=== PATIENT | female | born 1995 | race Asian ===

== ENCOUNTER 2017-08-10 10:49 | Emergency (ER) | payer MEDICAID ==
[~2017-08-10] VITALS: Ht 170.2 cm; Wt 59.0 kg
[~2017-08-10 10:49] MED LIST: BENADRYL ALLERG25 M1 PO; NKM; PREDNISONE20 M1 PO; PROCHLORPERAZINE5 MG ORAL; TYLENOL EXTRA500 MG ORAL
[2017-08-10 11:01] VITALS: BP 123/71
[2017-08-10 11:18] LABS: APPEARANCE,URINE CLEAR; BILIRUBIN, URINE 1+ (NEGATIVE); GLUCOSE, URINE (UA) NEGATIVE (NEGATIVE); KETONES,URINE NEGATIVE (NEGATIVE); LEUKOCYTE ESTERASE ,URINE 3+ (NEGATIVE); NITRITE,URINE POSITIVE (NEGATIVE); PH,URINE 7 (4.5-8.0); PROTEIN,URINE 1+ (NEGATIVE); UROBILINOGEN,URINE 1 MG/DL (0.0-1.0)
[2017-08-10] MEDS ORDERED: NITROFURANTOIN100 M2 ORAL (11:18)
[2017-08-10 11:22] VITALS: BP 123/71
--- NOTE | 2017-08-10 11:23 | Emergency Room Report ---
History of Present Illness General Chief Complaint: Female Urogenital Problems Source: Patient Present Illness HPI 22YOF walk-in with 1 day of dysuria. No associated fever/chills, abd pain, nausea/vomiting, abd pain. Allergies: Coded Allergies: No Known Allergies (Unverified , 01/21/16) Patient History Past Medical History: none Past Surgical History: none Pertinent Family History: none Social History: Denies: smoking, alcohol use, drug use Now: No Immunizations: UTD Reviewed Nursing Documentation: PMH: Agreed, PSxH: Agreed Nursing Documentation-PMH Past Medical History: No Stated History Review of Systems All Other Systems: negative except mentioned in HPI Physical Exam Vital Signs Date Time Temp Pulse Resp B/P (MAP) Pulse Ox O2 Delivery O2 Flow Rate FiO2 08/10/17 10:56 97.5 71 20 123/71 99 Room Air Sp02 EP Interpretation: reviewed, normal General Appearance: normal inspection, well appearing, no apparent distress, alert, GCS 15, non-toxic Head: normocephalic, atraumatic Eyes: bilateral eye PERRL, bilateral eye EOMI ENT: normal ENT inspection, hearing grossly normal, normal pharynx, no angioedema, normal voice, TMs + canals normal, uvula midline, moist mucus membranes Neck: normal inspection, full range of motion, supple, thyroid normal, no meningismus, no bony tend Respiratory: normal inspection, lungs clear, normal breath sounds, no rhonchi, no respiratory distress, no retraction, no accessory muscle use, no wheezing, speaking full sentences Cardiovascular #1: regular rate, rhythm, no edema, no JVD, normal capillary refill Gastrointestinal: normal inspection, normal bowel sounds, non tender, soft, no mass, no peritonitis, non-distended, no guarding, no hernia, no pulsatile mass Genitourinary: no CVA tenderness Musculoskeletal: normal inspection, back normal, normal range of motion, no calf tenderness, pelvis stable, Martina's Sign negative Neurologic: normal inspection, alert, oriented x3, responsive, asphalt layer III-XII nml as tested, motor strength/tone normal, cerebellar normal, normal gait, speech normal Psychiatric: normal inspection, judgement/insight normal, mood/affect normal, no suicidal/homicidal ideation, no delusions Skin: normal inspection, normal color, no rash Lymphatic: normal inspection, no adenopathy Medical Decision Making Diagnostic Impression: Primary Impression: Dysuria ER Course Will tx symptomatically for UTI Rx Macrobid VSS, afebrile Not septic appearing Low suspicion for pyelonephritis ER course: Patient has remained stable during ED stay. Disposition: Patient is to be discharged to home. Prescriptions given are macrobid Strict return precautions discussed with patient such as fever, chills, worsening/severe pain, nausea, vomiting, which may indicate severe illness. Patient verbalizes understanding and agrees with plan. Please note that this Emergency Department Report was dictated using [employer] technology software, occasionally this can lead to erroneous entry secondary to interpretation by the dictation equipment Last Vital Signs Date Time Temp Pulse Resp B/P (MAP) Pulse Ox O2 Delivery O2 Flow Rate FiO2 08/10/17 11:01 97.5 20 123/71 99 Room Air 08/10/17 10:56 71 Status: improved Disposition: HOME, SELF-CARE Condition: Improved Scripts Nitrofurantoin Monohyd/M-Cryst* (MACROBID 100 MG*) 100 Mg Capsule 100 MG ORAL EVERY 12 HOURS for 7 Days, #14 CAP Prov: DWAIN SIMMONS M.D. 08/10/17 Patient Instructions: Urinary Tract Infection DWAIN SIMMONS M.D. Aug 10, 2017 11:23
[2017-08-10 11:31] LABS: COLOR,URINE YELLOW
== END 2017-08-10 11:23 | disposition home or self-care (01) ==
LOC: EMR 11:20
DX: R30.0 Dysuria (principal)
CPT/HCPCS: 81003; 81025; 87086; 87181; 99283